=== PATIENT | male | born 1970 | race Caucasian/White ===

== ENCOUNTER → 2018-05-30 | Outpatient (CLI) | payer BC ==
--- NOTE | ~2018-05-30 | EKG ---
[place], [place] ELECTROCARDIOGRAM REPORT NAME: DARYL SKAGGS UNIT #: [id number] ROOM: DOCTOR: EPIPHANY DRAFT REPORT BIRTHDATE: [birth year] [facility] Test Date: 2018-05-30 Test Time: 11:21:23 Pat Name: DARYL SKAGGS Department: Room: Gender: [employer] Developer: : 1970 Requested By: ROGELIO VILLAFANA Order Number: [id number] Reading MD: Measurements Intervals Cameron Rate: 52 P: 44 [place]: 163 QRS: -8 QRSD: 111 T: 22 QT: 459 QTc: 427 Interpretive Statements Sinus rhythm RSR' in V1 or V2, right VCD or RVH ST elevation, consider anterior injury Baseline wander in lead(s) V1 No previous ECG available for comparison CM:EKGRPT:ELECTROCARDIOGRAM REPORT [id number] ROGELIO VILLAFANA EPIPHANY DRAFT REPORT ROGELIO VILLAFANA
== END | disposition home or self-care (01) ==
LOC: RAD 11:03
DX: F32.9 Major depressive disorder, single episode, unspecified (principal); M79.10 Myalgia, unspecified site; R53.83 Other fatigue; Z82.49 Family history of ischemic heart disease and other diseases of the circulatory system

== ENCOUNTER → 2023-09-20 | Outpatient (CLI) | payer BC ==
[2023-09-20 10:00] LABS: BASO % 0.6 % (0.0-1.0); EOS # 0.1 10*3/uL (0.0-0.4); EOS % 1.1 % (1.0-4.0); HEMATOCRIT 44.8 % (42.0-52.0); LYMPH # 1.7 10*3/uL (1.3-4.4); LYMPH % 30.9 % (27.0-41.0); MEAN CELL VOLUME 99.8 fl (80.0-94.0); MEAN CORPUSCULAR HGB 34.1 pg (27.0-31.0); MEAN CORPUSCULAR HGB CONC 34.2 g/dl (33.0-37.0); MEAN PLATELET VOLUME 10.4 fl (9.6-12.3); MONO # 0.5 10*3/uL (0.1-1.0); NEUT # 3.2 10*3/uL (2.3-7.9); NEUT % 58.2 % (47.0-73.0); PLATELET COUNT AUTOMATED 204 10*3/uL (130-400); RED BLOOD COUNT 4.49 10*6/uL (4.50-5.90); RED CELL DISTRI WIDTH 12.5 % (0-14.5); WHITE BLOOD COUNT 5.4 10*3/uL (4.8-10.8)
[2023-09-20 11:49] LABS: ALKALINE PHOSPHATASE 57 U/L (46-116); BUN 10 mg/dl (9-23); CHLORIDE 107 mmol/L (98-107); CHOLESTEROL 160 mg/dL (<200); LDL CHOLESTEROL 100 mg/dL (9-159); SGPT/ALT 64 U/L (5-49); TOTAL PROTEIN 7.2 gm/dL (6.0-8.0); TRIGLYCERIDES 138 mg/dl (<150)
== END | disposition home or self-care (01) ==
LOC: LAB 09:42
PROVIDERS: ATTEND Nurse Practitioner Family
DX: Z12.5 Encounter for screening for malignant neoplasm of prostate (principal); E78.5 Hyperlipidemia, unspecified; R00.1 Bradycardia, unspecified; R73.01 Impaired fasting glucose; Z82.49 Family history of ischemic heart disease and other diseases of the circulatory system; Z72.0 Tobacco use

== ENCOUNTER → 2023-10-03 | Outpatient (CLI) | payer BC ==
[2023-10-03 09:41] LABS: TOTAL PROTEIN 6.9 gm/dL (6.0-8.0)
[2023-10-04 05:07] LABS: HBSAG Negative (Negative); HEP B CORE AB, IGM Negative (Negative); HEPATITIS C ANTIBODY Non Reactive (Non Reactive)
== END ==
LOC: US 01:24 → LAB 01:24 → US 08:30
PROVIDERS: ATTEND Nurse Practitioner Family
DX: R79.89 Other specified abnormal findings of blood chemistry (principal)

== ENCOUNTER → 2023-10-17 | Outpatient (CLI) | payer BC | END | disposition home or self-care (01) | LOC: CARD 00:23 | PROVIDERS: ATTEND Nurse Practitioner Family | DX: I49.1 Atrial premature depolarization (principal); I49.3 Ventricular premature depolarization; R00.1 Bradycardia, unspecified ==

== ENCOUNTER → 2023-10-27 | Outpatient (CLI) | payer BC ==
[~2023-10-27] MED LIST: SINCALIDE IV ONE; SODIUM CHLORIDE 0.9% IV ONE
== END | disposition home or self-care (01) ==
LOC: NM 10-23 07:00
PROVIDERS: ATTEND Nurse Practitioner Family
DX: R10.13 Epigastric pain (principal); R79.89 Other specified abnormal findings of blood chemistry